=== PATIENT | male | born 1940 | race Caucasian/White ===

== ENCOUNTER 2024-03-27 08:57 | Inpatient (IN) | payer OTHER, MEDICARE ==
[~2024-03-27] VITALS: Ht 188 cm; Wt 96.8 kg
[2024-03-27 10:18] LABS: BASOPHILS % 0.5 % (0.0-2.0); HEMATOCRIT. 42.2 % (42.0-52.0); HEMOGLOBIN. 14.4 g/dL (14.0-18.0); LYMPHOCYTES % 11.6 % (20.0-50.0); MEAN CORPUSCULAR HEMOGLOBIN 33.2 pg (28.0-32.0); MEAN CORPUSCULAR HGB CONC 34.2 g/dL (31.0-37.0); MEAN CORPUSCULAR VOLUME 96.9 fL (80.0-94.0); MEAN PLATELET VOLUME 8.1 fl (7.4-10.4); NEUTROPHILS % 73.9 % (40.0-76.0); PLATELET 153 x1000/uL (130-400); RED BLOOD CELL COUNT 4.36 mill/uL (4.7-6.1); WHITE BLOOD COUNT 6.1 x1000/uL (4.5-11.0)
[2024-03-27 10:27] LABS: CHLORIDE 107 mEq/L (98-107); POTASSIUM 4.1 mEq/L (3.5-5.1); SODIUM 141 mEq/L (136-145)
[2024-03-27 10:28] LABS: CARBON DIOXIDE 27 mEq/L (21-32)
[2024-03-27 10:29] LABS: CALCIUM 9.3 mg/dL (8.7-10.4)
[2024-03-27 10:33] LABS: CREATININE 1.1 mg/dL (0.6-1.3); GLUCOSE 107 mg/dL (70-105); UREA NITROGEN BLOOD 23 mg/dL (9-23)
[2024-03-27] MEDS: ACETAMINOPHEN 325MG TABLET PO ONE (10:45)
[2024-03-27 11:40] LABS: PROTHROMBIN TIME 10.9 sec (9.6-11.0)
[2024-03-27] MEDS ORDERED: IPRATROPIUM/ALBUTEROL 0.5-3(2.5)MG/3ML NEB HHN PRN (13:00)
[2024-03-27] MEDS ORDERED: DOCUSATE SODIUM 100MG CAPSULE PO PRN (13:00)
[2024-03-27] MEDS ORDERED: GUAIFENESIN 200MG/10ML SUGAR FREE UDC PO PRN (13:00)
[2024-03-27] MEDS ORDERED: HYDROCODONE/ACETAMINOPHEN 5/325MG TABLET PO PRN ×2 (13:00→17:45)
[2024-03-27] MEDS ORDERED: NALOXONE HCL 0.4MG/ML VIAL IV PRN (13:00)
[2024-03-27] MEDS ORDERED: MAGNESIUM/ALUMINUM HYDROXIDE/SIMETHICONE 30ML UDC PO PRN (13:00)
[2024-03-27] MEDS ORDERED: ONDANSETRON HCL 4MG/2ML INJ IV PRN ×3 (13:00→17:45)
[2024-03-27] MEDS ORDERED: CLONIDINE 0.1MG TABLET PO PRN (13:00)
[2024-03-27] MEDS ORDERED: POLYMYXIN B SULFATE 500000 UNITS/VIAL ONE (13:40)
[2024-03-27] MEDS ORDERED: LIDOCAINE HCL/EPINEPHRINE 1%-EPI 1:100,000 20ML VIAL ONE (13:41)
[2024-03-27] MEDS ORDERED: VANCOMYCIN HCL 1GM VIAL ONE (13:41)
[2024-03-27 14:39] LABS: FOLIC ACID (FOLATE) SERUM > 20.00 ng/mL (>5.38); VITAMIN B12 SERUM 206 pg/mL (211-911)
[2024-03-27] MEDS ORDERED: GLYCOPYRROLATE 0.2 MG/ML 2ML VIAL IV PRN (15:00)
[2024-03-27] MEDS ORDERED: HYDROMORPHONE HCL/PF 1MG/ML INJ IV PRN ×3 (15:00)
[2024-03-27] MEDS ORDERED: LABETALOL 5MG/ML 4ML INJ IV PRN (15:00)
[2024-03-27] MEDS ORDERED: HYDRALAZINE 20MG/ML VIAL IV PRN (15:00)
[2024-03-27] MEDS ORDERED: DEXAMETHASONE 4MG/ML 1ML VIAL IV PRN (15:00)
[2024-03-27] MEDS ORDERED: MORPHINE SULFATE/PF 1MG/ML 10ML AMP ONE (15:54)
[2024-03-27] MEDS ORDERED: MIDAZOLAM HCL 2 MG/2 ML VIAL ONE (16:25)
[2024-03-27] MEDS ORDERED: EPHEDRINE SULFATE 50MG/ML VIAL ONE (16:32)
[2024-03-27] MEDS ORDERED: CEFAZOLIN SODIUM 1000MG/VIAL ONE (16:32)
[2024-03-27] MEDS ORDERED: HYDROMORPHONE HCL/PF 2MG/ML INJ IV PRN (17:45)
[2024-03-27 20:00] VITALS: BP 100/41; PULSE 66; RESP 19; TEMP 36.3918; O2SAT 98
[2024-03-27] MEDS: CEFAZOLIN 1000MG PREMIX 50 ML IV SCH (23:52)
[2024-03-28] VITALS (7 sets, daily range): BP systolic 104–124; BP diastolic 46–64; PULSE 65–74; RESP 18–20; TEMP 35.6396–36.50292; O2SAT 97–99
[2024-03-28 07:44] LABS: CHLORIDE 107 mEq/L (98-107); POTASSIUM 3.8 mEq/L (3.5-5.1); SODIUM 140 mEq/L (136-145)
[2024-03-28 07:45] LABS: CALCIUM 8.7 mg/dL (8.7-10.4); CARBON DIOXIDE 28 mEq/L (21-32)
[2024-03-28 07:47] LABS: BASOPHILS % 0.2 % (0.0-2.0); EOSINOPHILS % 2.8 % (0.0-5.0); HEMATOCRIT. 33.7 % (42.0-52.0); HEMOGLOBIN. 11.2 g/dL (14.0-18.0); LYMPHOCYTES % 8.9 % (20.0-50.0); MEAN CORPUSCULAR HEMOGLOBIN 32.1 pg (28.0-32.0); MEAN CORPUSCULAR HGB CONC 33.2 g/dL (31.0-37.0); MEAN CORPUSCULAR VOLUME 96.7 fL (80.0-94.0); MONOCYTES % 10.8 % (2.0-8.0); NEUTROPHILS % 77.3 % (40.0-76.0); PLATELET 135 x1000/uL (130-400); RED BLOOD CELL COUNT 3.48 mill/uL (4.7-6.1); RED CELL DISTRIBUTION WIDTH 14.2 % (11.6-14.6); WHITE BLOOD COUNT 7.9 x1000/uL (4.5-11.0)
[2024-03-28 07:50] LABS: CREATININE 0.8 mg/dL (0.6-1.3); GLUCOSE 112 mg/dL (70-105); TRIGLYCERIDE 48 mg/dL (0-150); UREA NITROGEN BLOOD 18 mg/dL (9-23)
[2024-03-28 07:51] LABS: LDL CHOLESTEROL 68 mg/dL (5-100)
[2024-03-28 07:52] LABS: ALANINE AMINOTRANSFERASE 12 IU/L (10-49); ALBUMIN 3.5 g/dL (3.2-4.8); ASPARTATE AMINOTRANSFERASE 14 IU/L (<34); BILIRUBIN TOTAL 1.2 mg/dL (0.1-1.0); CHOLESTEROL 147 mg/dL (<200); HDL CHOLESTEROL 53 mg/dL (>55); PROTEIN TOTAL 5.2 g/dL (6.0-8.3); T4 FREE 1.29 ng/dL (0.89-1.76)
[2024-03-28] MEDS: ENOXAPARIN 40MG/0.4ML SYR SUBCUT SCH (08:12)
[2024-03-28] MEDS: PANTOPRAZOLE SODIUM 40 MG/VIAL IV SCH (09:30)
[2024-03-28] MEDS: HYDROCODONE/ACETAMINOPHEN 5/325MG TABLET PO PRN (10:48)
[2024-03-28] MEDS: TAMSULOSIN HCL 0.4MG SR CAPSULE PO SCH (22:00)
[2024-03-29] VITALS: BP 117/50; PULSE 81; RESP 20; TEMP 36.61404; O2SAT 95
[2024-03-29 04:00] VITALS: BP 117/50; PULSE 81; RESP 20; TEMP 36.61404; O2SAT 95
[2024-03-29 07:51] LABS: HEMATOCRIT. 30.6 % (42.0-52.0); HEMOGLOBIN. 10.3 g/dL (14.0-18.0); MEAN CORPUSCULAR HEMOGLOBIN 32.2 pg (28.0-32.0); MEAN CORPUSCULAR HGB CONC 33.5 g/dL (31.0-37.0); MEAN CORPUSCULAR VOLUME 96.1 fL (80.0-94.0); MEAN PLATELET VOLUME 7.9 fl (7.4-10.4); PLATELET 118 x1000/uL (130-400); RED BLOOD CELL COUNT 3.19 mill/uL (4.7-6.1); RED CELL DISTRIBUTION WIDTH 14.2 % (11.6-14.6); WHITE BLOOD COUNT 8.4 x1000/uL (4.5-11.0)
[2024-03-29 08:00] VITALS: BP 116/50; PULSE 72; RESP 19; TEMP 36.3918; O2SAT 99
[2024-03-29 08:01] LABS: DIFFERENTIAL COMMENT 1
[2024-03-29 12:00] VITALS: BP 122/46; PULSE 73; RESP 19; TEMP 36.16956; O2SAT 97
[2024-03-29 13:50] LABS: PLATELET ESTIMATE SLIGHTLY DECREASED
[2024-03-29 16:00] VITALS: BP 117/50; PULSE 71; RESP 19; TEMP 36.28068; O2SAT 97
[2024-03-29 20:00] VITALS: BP 101/51; PULSE 71; RESP 18; TEMP 37.28076; O2SAT 96
[2024-03-30 04:00] VITALS: BP 107/41; PULSE 68; RESP 18; TEMP 36.78072; O2SAT 96
[2024-03-30 07:21] LABS: BASOPHILS % 0.6 % (0.0-2.0); EOSINOPHILS % 3.8 % (0.0-5.0); HEMATOCRIT. 28.2 % (42.0-52.0); HEMOGLOBIN. 9.4 g/dL (14.0-18.0); LYMPHOCYTES % 9.2 % (20.0-50.0); MEAN CORPUSCULAR HEMOGLOBIN 32.1 pg (28.0-32.0); MEAN CORPUSCULAR HGB CONC 33.4 g/dL (31.0-37.0); MEAN CORPUSCULAR VOLUME 96.1 fL (80.0-94.0); MEAN PLATELET VOLUME 7.9 fl (7.4-10.4); MONOCYTES % 12.2 % (2.0-8.0); NEUTROPHILS % 74.2 % (40.0-76.0); PLATELET 115 x1000/uL (130-400); RED BLOOD CELL COUNT 2.94 mill/uL (4.7-6.1); RED CELL DISTRIBUTION WIDTH 14.2 % (11.6-14.6); WHITE BLOOD COUNT 6.2 x1000/uL (4.5-11.0)
[2024-03-30 08:00] VITALS: BP 128/60; PULSE 67; RESP 20; TEMP 36.78072; O2SAT 94
[2024-03-30] MEDS: CEFAZOLIN 1000MG PREMIX 50 ML IV SCH (08:57)
[2024-03-30 12:00] VITALS: BP 113/44; PULSE 75; RESP 20; TEMP 36.72516; O2SAT 96
[2024-03-30] MEDS: CYANOCOBALAMIN 1000MCG/ML VIAL IM SCH (14:52)
[2024-03-30 16:00] VITALS: BP 124/49; PULSE 64; RESP 20; TEMP 36.78072; O2SAT 94
[2024-03-30 20:00] VITALS: BP 104/53; PULSE 72; RESP 20; TEMP 36.6696; O2SAT 95
[2024-03-31] VITALS: BP 118/44; PULSE 75; RESP 20; TEMP 36.89184; O2SAT 95
[2024-03-31 04:00] VITALS: BP 114/48; PULSE 71; RESP 20; TEMP 36.9474; O2SAT 95
[2024-03-31 07:00] LABS: IRON 33 ug/dL (65-175)
[2024-03-31 07:03] LABS: TOTAL IRON BINDING CAPACITY 314 ug/dl (250-425)
[2024-03-31 08:00] VITALS: BP 111/43; PULSE 70; RESP 18; TEMP 36.44736; O2SAT 97
[2024-03-31 12:00] VITALS: BP_SYST 113; BP_SYST 130; BP_DIAS 46; BP_DIAS 50; PULSE 65; PULSE 67; RESP 18; TEMP 36.50292; TEMP 36.6696; O2SAT 96; O2SAT 98
[2024-03-31 16:00] VITALS: BP 130/50; PULSE 65; RESP 18; TEMP 36.6696; O2SAT 98
[2024-03-31] MEDS: FERROUS SULFATE 325MG TABLET PO SCH (18:16)
[2024-03-31 20:00] VITALS: BP 108/45; PULSE 72; RESP 20; TEMP 36.72516; O2SAT 95
[2024-03-31] MEDS: CEFAZOLIN 1,000 MG in DEXTROSE 5% WATER 50 ML IV SCH (23:42)
[2024-04-01] VITALS: BP 124/45; PULSE 69; RESP 20; TEMP 36.50292; O2SAT 97
[2024-04-01 04:00] VITALS: BP 122/58; PULSE 72; RESP 18; TEMP 36.55848; O2SAT 99
[2024-04-01] MEDS: ASCORBIC ACID 500 MG TABLET PO SCH (09:35)
[2024-04-01 16:00] VITALS: BP 107/41; PULSE 77; RESP 18; TEMP 37.05852; O2SAT 100
[2024-04-01] MEDS ORDERED: HYDROCODONE/ACETAMINOPHEN 5/325MG TABLET PO PRN (19:45)
[2024-04-01 20:00] VITALS: BP 113/60; PULSE 71; RESP 20; TEMP 36.55848; O2SAT 96
[2024-04-01] MEDS: DEXT 5%/0.45% NACL 1000ML 1,000 ML IV ONE (22:13)
[2024-04-02] VITALS: BP 130/59; PULSE 66; RESP 18; TEMP 36.50292; O2SAT 96
[2024-04-02 04:00] VITALS: BP 125/50; PULSE 63; RESP 18; TEMP 36.44736; O2SAT 97
[2024-04-02 08:00] VITALS: BP 119/52; PULSE 66; RESP 18; TEMP 36.16956; O2SAT 96
[2024-04-02] MEDS: ACETAMINOPHEN 325MG TABLET PO PRN (10:35)
[2024-04-02 12:00] VITALS: BP 103/36; PULSE 65; RESP 19; TEMP 37.11408; O2SAT 97
[2024-04-02 16:00] VITALS: BP 115/49; PULSE 61; RESP 17; TEMP 36.78072; O2SAT 100
[2024-04-02 20:00] VITALS: BP 114/43; PULSE 67; RESP 17; TEMP 36.72516; O2SAT 98
[2024-04-03] VITALS: BP 118/47; PULSE 69; RESP 17; TEMP 36.78072; O2SAT 98
[2024-04-03 04:00] VITALS: BP 138/51; PULSE 64; RESP 17; TEMP 36.78072; O2SAT 100
[2024-04-03 08:00] VITALS: BP 119/54; PULSE 66; RESP 20; TEMP 36.72516; O2SAT 96
[2024-04-03 12:11] VITALS: BP 130/55; PULSE 68; RESP 20; TEMP 36.72516; O2SAT 98
[2024-04-03 16:00] VITALS: BP 108/46; PULSE 65; RESP 20; TEMP 37.00296; O2SAT 99
[2024-04-03] MEDS ORDERED: NALOXONE HCL 0.4MG/ML VIAL IV PRN (16:30)
[2024-04-03 20:00] VITALS: BP 113/46; PULSE 82; RESP 18; TEMP 36.89184; O2SAT 100
[2024-04-04] VITALS: BP 118/47; PULSE 71; RESP 18; TEMP 37.00296; O2SAT 98
[2024-04-04 04:00] VITALS: BP 136/49; PULSE 63; RESP 18; TEMP 36.61404; O2SAT 99
[2024-04-04 08:00] VITALS: BP 130/50; PULSE 62; RESP 18; TEMP 36.50292; O2SAT 96
[2024-04-04 12:00] VITALS: BP 120/50; PULSE 60; RESP 18; TEMP 36.3918; O2SAT 96
[2024-04-04 16:00] VITALS: BP 117/48; PULSE 67; RESP 17; TEMP 36.72516; O2SAT 96
[2024-04-04 20:00] VITALS: BP 106/56; PULSE 68; RESP 18; TEMP 35.66952; O2SAT 98
[2024-04-05] VITALS: BP 114/60; PULSE 72; RESP 18; TEMP 35.94732; O2SAT 97
[2024-04-05 04:00] VITALS: BP 112/58; PULSE 78; RESP 18; TEMP 36.50292; O2SAT 97
[2024-04-05 08:00] VITALS: BP 119/48; PULSE 69; RESP 19; TEMP 36.61404; O2SAT 96
[2024-04-05 12:00] VITALS: BP 108/46; PULSE 67; RESP 19; TEMP 36.61404; O2SAT 98
[2024-04-05 16:00] VITALS: BP 108/46; PULSE 67; RESP 19; TEMP 36.55848; O2SAT 96
[2024-04-05 20:00] VITALS: BP 119/47; PULSE 69; RESP 19; TEMP 37.2252; O2SAT 96
[2024-04-06] VITALS: BP 111/53; PULSE 78; RESP 19; TEMP 37.11408; O2SAT 97
[2024-04-06 04:00] VITALS: BP 120/48; PULSE 78; RESP 19; TEMP 36.61404; O2SAT 97
[2024-04-06 08:00] VITALS: BP 100/46; PULSE 63; RESP 20; TEMP 36.55848; O2SAT 96
[2024-04-06 12:20] VITALS: BP 119/43; PULSE 67; RESP 20; TEMP 36.44736; O2SAT 96
[2024-04-06 16:00] VITALS: BP 115/47; PULSE 67; RESP 20; TEMP 36.55848; O2SAT 96
[2024-04-06 20:00] VITALS: BP 111/51; PULSE 64; RESP 18; TEMP 36.72516; O2SAT 98
[2024-04-07] VITALS: BP 123/48; PULSE 89; RESP 16; TEMP 36.50292; O2SAT 99
[2024-04-07 04:00] VITALS: BP 116/46; PULSE 68; RESP 19; TEMP 36.33624; O2SAT 99
[2024-04-07 08:00] VITALS: BP 108/40; PULSE 65; RESP 17; TEMP 36.61404; O2SAT 95
[2024-04-07 12:00] VITALS: BP 106/43; PULSE 62; RESP 18; TEMP 36.00288; O2SAT 96
[2024-04-07 16:00] VITALS: BP 112/52; PULSE 69; RESP 18; TEMP 36.61404; O2SAT 18
[2024-04-07 20:00] VITALS: BP 100/38; PULSE 67; RESP 16; TEMP 36.89184; O2SAT 97
[2024-04-08] VITALS: BP 92/53; PULSE 66; RESP 20; TEMP 36.28068; O2SAT 100
[2024-04-08 04:00] VITALS: BP 115/51; PULSE 64; RESP 19; TEMP 36.83628; O2SAT 97
[2024-04-08 08:00] VITALS: BP 115/43; PULSE 65; RESP 17; TEMP 36.72516; O2SAT 95
[2024-04-08 12:00] VITALS: BP 107/44; PULSE 68; RESP 18; TEMP 37.28076; O2SAT 96
[2024-04-08 16:00] VITALS: BP 101/47; PULSE 62; RESP 17; TEMP 36.78072; O2SAT 96
[2024-04-08 20:00] VITALS: BP 102/48; PULSE 62; RESP 19; TEMP 36.3918; O2SAT 99
[2024-04-09] VITALS: BP 123/66; PULSE 84; RESP 20; TEMP 36.83628; O2SAT 99
[2024-04-09 04:00] VITALS: BP 117/54; PULSE 60; RESP 18; TEMP 36.3918; O2SAT 98
[2024-04-09 08:00] VITALS: BP 109/54; PULSE 63; RESP 19; TEMP 37.00296; O2SAT 94
[2024-04-09 12:00] VITALS: BP 113/48; PULSE 66; RESP 19; TEMP 36.89184; O2SAT 96
[2024-04-09] MEDS: NYSTATIN POWDER 15GM TOP SCH (13:03)
[2024-04-09 16:00] VITALS: BP 102/58; PULSE 66; RESP 20; TEMP 36.78072; O2SAT 98
[2024-04-09 20:00] VITALS: BP 99/47; PULSE 63; RESP 18; TEMP 36.6696; O2SAT 96
[2024-04-10] VITALS: BP 106/46; PULSE 65; RESP 18; TEMP 36.61404; O2SAT 97
[2024-04-10 04:00] VITALS: BP 110/52; PULSE 65; RESP 18; TEMP 36.6696; O2SAT 98
[2024-04-10 08:00] VITALS: BP 110/74; PULSE 71; RESP 20; TEMP 36.3918; O2SAT 95
[2024-04-10 12:00] VITALS: BP 117/51; PULSE 70; RESP 20; TEMP 36.33624; O2SAT 95
[2024-04-10 14:24] VITALS: BP 117/95; PULSE 70; TEMP 97.4; O2SAT 95
[2024-04-10 16:00] VITALS: BP 116/48; PULSE 69; RESP 20; TEMP 36.44736; O2SAT 98
[2024-04-12] MEDS ORDERED: CYANOCOBALAMIN 1000MCG/ML VIAL IM SCH (09:00)
== END 2024-04-10 18:15 | DRG 482 ==
LOC: ER 08:57 → 6EST 11:47 → EDBEDREQTM 11:51 → EDBEDREQ 11:51
PROVIDERS: ADMIT Internal Medicine; ATTEND Internal Medicine
PROC: 0QH706Z Insertion of Intramedullary Internal Fixation Device into Left Upper Femur, Open Approach (ICD-10-PCS; principal; 2024-03-27)
DX: S72.142A Displaced intertrochanteric fracture of left femur, initial encounter for closed fracture (principal); N40.0 Benign prostatic hyperplasia without lower urinary tract symptoms; D64.9 Anemia, unspecified; D69.6 Thrombocytopenia, unspecified; Z20.822 Contact with and (suspected) exposure to COVID-19; E53.8 Deficiency of other specified B group vitamins; R53.81 Other malaise; Z90.49 Acquired absence of other specified parts of digestive tract; W01.0XXA Fall on same level from slipping, tripping and stumbling without subsequent striking against object, initial encounter; Y92.480 Sidewalk as the place of occurrence of the external cause; Y93.01 Activity, walking, marching and hiking; Y99.8 Other external cause status; Z82.49 Family history of ischemic heart disease and other diseases of the circulatory system
CPT/HCPCS: 36415; 73502; 73503; 73552; 76000; 80048; 80053; 80061; 82607; 82728; 82746; 83036; 83540; 83550; 84439; 84443; 85025; 85379; 86850; 86900; 87426; 93005; 93306; 93970; 97110; 97116; 97162; 97166; 97530; 97535; 99285; J0690; J1650; J2250; J2274; J2470; J3370; J3420; J3490; J7030; J7060; C1713